=== PATIENT | male | born 1950 | race Caucasian/White ===

== ENCOUNTER 2018-02-25 16:32 | Inpatient (IN) ==
[2018-02-25] MEDS ORDERED: *HR* Enoxaparin 40 MG/0.4 ML SYRINGE SQ SCH (21:00)
[2018-02-25] MEDS: Methocarbamol 500 MG TABLET PO SCH (22:26)
[2018-02-25] MEDS: *HR* OxyCODONE Immed Rel 5 MG TABLET PO PRN (22:27)
[2018-02-25] MEDS: Ascorbic Acid 500 MG TABLET PO SCH (22:28)
[2018-02-25] MEDS: Gabapentin 300 MG CAPSULE PO SCH (22:28)
[2018-02-26] MEDS: *HR* OxyCODONE Immed Rel 5 MG TABLET PO PRN ×4 (03:27→21:41)
[2018-02-26] MEDS: Acetaminophen 325 MG TABLET PO SCH ×4 (03:31→17:54)
[2018-02-26 06:53] LABS: Basophils % 0.4 %; Eosinophils # 0.1 K/mcL (0.0-0.6); Eosinophils % 1.5 %; Hematocrit 25.2 % (37.5-50.1); Hemoglobin 8.2 g/dL (12.9-16.9); Immature Granulocytes % 1.4 % (0-4); Lymphocytes # 1.2 K/mcL (0.6-4.6); Lymphocytes % 14.2 %; Mean Corpuscular HGB Conc 32.5 g/dL (31.6-35.5); Mean Corpuscular Hemoglobin 29.9 pg (28.0-33.3); Mean Platelet Volume 9.1 fL (9.4-12.4); Monocytes # 0.8 K/mcL (0.0-1.3); Monocytes % 9.1 %; Neutrophils # 6.3 K/mcL (1.6-8.9); Nucleated Red Blood Cells 0.5 /100 WBC (0); Platelet Count 394 K/mcL (140-400); Red Blood Count 2.74 M/mcL (4.19-5.50); Red Cell Distribution Width 15.5 % (11.5-14.5); Segmented Neutrophils % 73.4 %
[2018-02-26 07:15] LABS: INR 1.2
[2018-02-26 07:17] LABS: Activated Partial Thrombo Time 25.5 Seconds (26.0-36.0)
[2018-02-26 07:25] LABS: BUN/Creatinine Ratio 25 (6-26); Blood Urea Nitrogen 19 mg/dL (8-23); Calcium 8.2 mg/dL (8.6-10.3); Carbon Dioxide 25 mEq/L (23-29); Chloride 103 mEq/L (98-107); Glucose 190 mg/dL (70-105); Osmolality,Calculated 291 (280-300); Potassium 3.7 mEq/L (3.5-5.1); Sodium 137 mEq/L (136-145); eGFR For African Americans > 60 (> 60); eGFR For Non-African Americans > 60 (> 60)
[2018-02-26] MEDS: amLODIPine 5 MG TABLET PO SCH (10:00)
[2018-02-26] MEDS: *HR* GlipiZIDE XL (24 HR) 10 MG TABLET PO SCH (10:01)
[2018-02-26] MEDS: Celecoxib 100 MG CAPSULE PO SCH (10:01)
[2018-02-26] MEDS: Ascorbic Acid 500 MG TABLET PO SCH ×2 (10:01→21:41)
[2018-02-26] MEDS: Multivit/Ca/Min/Fe/FA 1 TAB TABLET PO SCH (10:01)
[2018-02-26] MEDS: Methocarbamol 500 MG TABLET PO SCH ×2 (10:01→21:40)
[2018-02-26] MEDS: Sennosides 8.6 MG TABLET PO SCH (10:02)
[2018-02-26] MEDS: Cholecalciferol (D-3) 1,000 UNIT TABLET PO SCH (10:02)
[2018-02-26] MEDS: Lisinopril 20 MG TABLET PO SCH (10:02)
[2018-02-26] MEDS: Zinc Sulfate 220 MG CAPSULE PO SCH (10:02)
[2018-02-26] MEDS: Gabapentin 300 MG CAPSULE PO SCH ×3 (10:03→21:41)
[2018-02-26] MEDS: BuPROPion SR (12 HR) 100 MG TABLET PO SCH ×2 (10:10→21:52)
[2018-02-26] MEDS: *HR* Enoxaparin 40 MG/0.4 ML SYRINGE SQ SCH (10:15)
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
[2018-02-27] MEDS: *HR* OxyCODONE Immed Rel 5 MG TABLET PO PRN ×4 (02:35→17:11)
[2018-02-27 06:36] LABS: Basophils % 0.3 %; Eosinophils # 0.2 K/mcL (0.0-0.6); Eosinophils % 2.2 %; Hematocrit 26.8 % (37.5-50.1); Hemoglobin 8.4 g/dL (12.9-16.9); Immature Granulocytes % 1.1 % (0-4); Lymphocytes # 1.1 K/mcL (0.6-4.6); Lymphocytes % 15.1 %; Mean Corpuscular HGB Conc 31.3 g/dL (31.6-35.5); Mean Corpuscular Hemoglobin 29.8 pg (28.0-33.3); Mean Platelet Volume 9.4 fL (9.4-12.4); Monocytes # 0.7 K/mcL (0.0-1.3); Monocytes % 9.8 %; Neutrophils # 5.3 K/mcL (1.6-8.9); Nucleated Red Blood Cells 0.4 /100 WBC (0); Platelet Count 438 K/mcL (140-400); Red Blood Count 2.82 M/mcL (4.19-5.50); Red Cell Distribution Width 15.9 % (11.5-14.5); Segmented Neutrophils % 71.5 %
[2018-02-27] MEDS: Acetaminophen 325 MG TABLET PO SCH ×4 (06:38→17:12)
[2018-02-27] MEDS: *HR* Enoxaparin 40 MG/0.4 ML SYRINGE SQ SCH (06:38)
[2018-02-27] MEDS: Multivit/Ca/Min/Fe/FA 1 TAB TABLET PO SCH (07:58)
[2018-02-27] MEDS: Zinc Sulfate 220 MG CAPSULE PO SCH (07:58)
[2018-02-27] MEDS: *HR* GlipiZIDE XL (24 HR) 10 MG TABLET PO SCH (07:58)
[2018-02-27] MEDS: BuPROPion SR (12 HR) 100 MG TABLET PO SCH ×2 (07:58→20:46)
[2018-02-27] MEDS: Lisinopril 20 MG TABLET PO SCH (07:58)
[2018-02-27] MEDS: Ascorbic Acid 500 MG TABLET PO SCH (07:58)
[2018-02-27] MEDS: Celecoxib 100 MG CAPSULE PO SCH (07:58)
[2018-02-27] MEDS: Methocarbamol 500 MG TABLET PO SCH ×2 (07:58→20:46)
[2018-02-27] MEDS: Cholecalciferol (D-3) 1,000 UNIT TABLET PO SCH (07:59)
[2018-02-27] MEDS: amLODIPine 5 MG TABLET PO SCH (07:59)
[2018-02-27] MEDS: Gabapentin 300 MG CAPSULE PO SCH ×3 (07:59→20:46)
[2018-02-27] MEDS: Sennosides 8.6 MG TABLET PO SCH (08:04)
[2018-02-27 09:01] LABS: % Iron Saturation 18 % (20-55); Iron 54 mcg/dL (65-175); Transferrin 210 mg/dL (203-362)
[2018-02-27 09:02] LABS: Estimated Average Glucose 114 mg/dl; Hemoglobin A1C 5.6 %
[2018-02-27 09:19] LABS: Ferritin 137 ng/mL (20-250)
[2018-02-27 09:36] LABS: Vitamin B12 411 pg/mL (250-1100)
[2018-02-27 09:40] LABS: Folate > 22.3 ng/mL (3.0-16.0)
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
[2018-02-28] MEDS: Acetaminophen 325 MG TABLET PO SCH ×4 (01:34→17:31)
[2018-02-28] MEDS: *HR* OxyCODONE Immed Rel 5 MG TABLET PO PRN ×4 (05:21→21:25)
[2018-02-28] MEDS: *HR* Enoxaparin 40 MG/0.4 ML SYRINGE SQ SCH (05:22)
[2018-02-28] MEDS ORDERED: Ascorbic Acid 500 MG TABLET PO SCH (06:30)
[2018-02-28] MEDS: BuPROPion SR (12 HR) 100 MG TABLET PO SCH ×2 (09:37→21:27)
[2018-02-28] MEDS: Gabapentin 300 MG CAPSULE PO SCH ×3 (09:37→21:25)
[2018-02-28] MEDS: Methocarbamol 500 MG TABLET PO SCH ×2 (09:37→21:26)
[2018-02-28] MEDS: Zinc Sulfate 220 MG CAPSULE PO SCH (09:37)
[2018-02-28] MEDS: Lisinopril 20 MG TABLET PO SCH (09:37)
[2018-02-28] MEDS: amLODIPine 5 MG TABLET PO SCH (09:38)
[2018-02-28] MEDS: Cholecalciferol (D-3) 1,000 UNIT TABLET PO SCH (09:38)
[2018-02-28] MEDS: *HR* GlipiZIDE XL (24 HR) 10 MG TABLET PO SCH (09:38)
[2018-02-28] MEDS: Multivit/Ca/Min/Fe/FA 1 TAB TABLET PO SCH (09:38)
[2018-02-28] MEDS: Sennosides 8.6 MG TABLET PO SCH (09:38)
[2018-03-01] MEDS: Acetaminophen 325 MG TABLET PO SCH ×4 (00:55→18:11)
[2018-03-01] MEDS: *HR* OxyCODONE Immed Rel 5 MG TABLET PO PRN ×5 (02:15→22:32)
[2018-03-01] MEDS: Ascorbic Acid 500 MG TABLET PO SCH (06:41)
[2018-03-01] MEDS: *HR* Enoxaparin 40 MG/0.4 ML SYRINGE SQ SCH (06:41)
[2018-03-01] MEDS: Multivit/Ca/Min/Fe/FA 1 TAB TABLET PO SCH (08:48)
[2018-03-01] MEDS: Lisinopril 20 MG TABLET PO SCH (08:48)
[2018-03-01] MEDS: Gabapentin 300 MG CAPSULE PO SCH ×3 (08:50→20:34)
[2018-03-01] MEDS: BuPROPion SR (12 HR) 100 MG TABLET PO SCH ×2 (08:50→20:34)
[2018-03-01] MEDS: Methocarbamol 500 MG TABLET PO SCH ×2 (08:50→20:34)
[2018-03-01] MEDS: Zinc Sulfate 220 MG CAPSULE PO SCH (08:50)
[2018-03-01] MEDS: amLODIPine 5 MG TABLET PO SCH (08:51)
[2018-03-01] MEDS: Cholecalciferol (D-3) 1,000 UNIT TABLET PO SCH (08:51)
[2018-03-01] MEDS: *HR* GlipiZIDE XL (24 HR) 10 MG TABLET PO SCH (08:51)
[2018-03-01] MEDS: Sennosides 8.6 MG TABLET PO SCH (08:53)
[2018-03-02] MEDS: Acetaminophen 325 MG TABLET PO SCH ×6 (01:36→22:50)
[2018-03-02] MEDS: Ascorbic Acid 500 MG TABLET PO SCH (05:48)
[2018-03-02] MEDS: *HR* OxyCODONE Immed Rel 5 MG TABLET PO PRN ×3 (05:49→18:43)
[2018-03-02] MEDS: *HR* Enoxaparin 40 MG/0.4 ML SYRINGE SQ SCH (05:49)
[2018-03-02] MEDS: amLODIPine 5 MG TABLET PO SCH (09:23)
[2018-03-02] MEDS: *HR* GlipiZIDE XL (24 HR) 10 MG TABLET PO SCH (09:23)
[2018-03-02] MEDS: Multivit/Ca/Min/Fe/FA 1 TAB TABLET PO SCH (09:24)
[2018-03-02] MEDS: Zinc Sulfate 220 MG CAPSULE PO SCH (09:24)
[2018-03-02] MEDS: BuPROPion SR (12 HR) 100 MG TABLET PO SCH ×2 (09:24→21:11)
[2018-03-02] MEDS: Gabapentin 300 MG CAPSULE PO SCH ×3 (09:24→21:08)
[2018-03-02] MEDS: Lisinopril 20 MG TABLET PO SCH (09:25)
[2018-03-02] MEDS: Methocarbamol 500 MG TABLET PO SCH ×2 (09:25→21:07)
[2018-03-02] MEDS: Sennosides 8.6 MG TABLET PO SCH (09:25)
[2018-03-02] MEDS: Cholecalciferol (D-3) 1,000 UNIT TABLET PO SCH (09:25)
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
[2018-03-03] MEDS: Ascorbic Acid 500 MG TABLET PO SCH (05:41)
[2018-03-03] MEDS: Acetaminophen 325 MG TABLET PO SCH ×3 (05:42→18:16)
[2018-03-03] MEDS: *HR* Enoxaparin 40 MG/0.4 ML SYRINGE SQ SCH (05:42)
[2018-03-03] MEDS: *HR* OxyCODONE Immed Rel 5 MG TABLET PO PRN ×3 (09:04→19:01)
[2018-03-03] MEDS: Lisinopril 20 MG TABLET PO SCH (09:05)
[2018-03-03] MEDS: Methocarbamol 500 MG TABLET PO SCH ×2 (09:05→20:56)
[2018-03-03] MEDS: amLODIPine 5 MG TABLET PO SCH (09:05)
[2018-03-03] MEDS: Cholecalciferol (D-3) 1,000 UNIT TABLET PO SCH (09:06)
[2018-03-03] MEDS: Sennosides 8.6 MG TABLET PO SCH (09:06)
[2018-03-03] MEDS: Zinc Sulfate 220 MG CAPSULE PO SCH (09:06)
[2018-03-03] MEDS: Gabapentin 300 MG CAPSULE PO SCH ×3 (09:06→20:56)
[2018-03-03] MEDS: Multivit/Ca/Min/Fe/FA 1 TAB TABLET PO SCH (11:46)
[2018-03-03] MEDS: BuPROPion SR (12 HR) 100 MG TABLET PO SCH ×2 (11:46→20:56)
[2018-03-03] MEDS: *HR* GlipiZIDE XL (24 HR) 10 MG TABLET PO SCH (11:46)
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
[2018-03-04] MEDS: Acetaminophen 325 MG TABLET PO SCH ×4 (05:37→16:59)
[2018-03-04] MEDS: *HR* Enoxaparin 40 MG/0.4 ML SYRINGE SQ SCH (05:38)
[2018-03-04] MEDS: *HR* OxyCODONE Immed Rel 5 MG TABLET PO PRN ×3 (05:38→19:33)
[2018-03-04] MEDS: Ascorbic Acid 500 MG TABLET PO SCH (05:38)
[2018-03-04] MEDS: Multivit/Ca/Min/Fe/FA 1 TAB TABLET PO SCH (11:17)
[2018-03-04] MEDS: Zinc Sulfate 220 MG CAPSULE PO SCH (11:17)
[2018-03-04] MEDS: BuPROPion SR (12 HR) 100 MG TABLET PO SCH ×2 (11:17→19:34)
[2018-03-04] MEDS: *HR* GlipiZIDE XL (24 HR) 10 MG TABLET PO SCH (11:17)
[2018-03-04] MEDS: Methocarbamol 500 MG TABLET PO SCH ×2 (11:18→19:34)
[2018-03-04] MEDS: amLODIPine 5 MG TABLET PO SCH (11:21)
[2018-03-04] MEDS: Cholecalciferol (D-3) 1,000 UNIT TABLET PO SCH (11:21)
[2018-03-04] MEDS: Sennosides 8.6 MG TABLET PO SCH (11:22)
[2018-03-04] MEDS: Lisinopril 20 MG TABLET PO SCH (11:22)
[2018-03-04] MEDS: Gabapentin 300 MG CAPSULE PO SCH ×3 (11:22→19:34)
[2018-03-05] MEDS: Acetaminophen 325 MG TABLET PO SCH ×4 (03:56→16:27)
[2018-03-05] MEDS: *HR* Enoxaparin 40 MG/0.4 ML SYRINGE SQ SCH (05:53)
[2018-03-05] MEDS: Ascorbic Acid 500 MG TABLET PO SCH (05:53)
[2018-03-05] MEDS: *HR* OxyCODONE Immed Rel 5 MG TABLET PO PRN ×3 (06:45→16:28)
[2018-03-05 07:14] VITALS: BP 100/73
[2018-03-05] MEDS: amLODIPine 5 MG TABLET PO SCH (09:27)
[2018-03-05] MEDS: Lisinopril 20 MG TABLET PO SCH (09:27)
[2018-03-05] MEDS: Methocarbamol 500 MG TABLET PO SCH (09:27)
[2018-03-05] MEDS: Multivit/Ca/Min/Fe/FA 1 TAB TABLET PO SCH (09:27)
[2018-03-05] MEDS: Gabapentin 300 MG CAPSULE PO SCH ×2 (09:27→16:28)
[2018-03-05] MEDS: Zinc Sulfate 220 MG CAPSULE PO SCH (09:27)
[2018-03-05] MEDS: Cholecalciferol (D-3) 1,000 UNIT TABLET PO SCH (09:27)
[2018-03-05] MEDS: Sennosides 8.6 MG TABLET PO SCH (09:28)
[2018-03-05] MEDS: *HR* GlipiZIDE XL (24 HR) 10 MG TABLET PO SCH (09:33)
[2018-03-05] MEDS: BuPROPion SR (12 HR) 100 MG TABLET PO SCH (09:33)
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
[2018-03-05] MEDS ORDERED: *HR* OxyCODONE Immed Rel 5 MG TABLET PO ONE (18:44)
[2018-03-12] MEDS ORDERED: Gabapentin 100 MG CAPSULE PO PRN (21:00)
== END 2018-03-05 18:52 | disposition home health service (06) | DRG 561 ==
LOC: INPPIK 19:44
PROVIDERS: ADMIT Internal Medicine; ATTEND Internal Medicine